=== PATIENT | male | born 1960 | race Caucasian/White ===

== ENCOUNTER 2023-12-29 22:01 | Emergency (ER) | payer BC, MEDICAID ==
[~2023-12-29] VITALS: Ht 172.7 cm; Wt 73.5 kg
[2023-12-29 22:12] VITALS: BP_SYST 118; PULSE 66; RESP 16; TEMP 97.9; O2SAT 98
[2023-12-29] MEDS: LIDOCAINE 1% 10 MG/ML, 20 ML MDV SUBCUT ONE (23:27)
[2023-12-29] MEDS: BACITRACIN 1 GM OINT TP ONE (23:27)
== END 2023-12-29 23:58 | disposition home or self-care (01) ==
LOC: SED 22:01
DX: S81.811A Laceration without foreign body, right lower leg, initial encounter (principal); I10 Essential (primary) hypertension; V48.4XXA Person boarding or alighting a car injured in noncollision transport accident, initial encounter; Y93.89 Activity, other specified; Y92.89 Other specified places as the place of occurrence of the external cause; Y99.8 Other external cause status
CPT/HCPCS: 99282; J2001